=== PATIENT | female | born 1970 | race Hispanic/Latino ===

== ENCOUNTER → 2018-04-23 | Outpatient (CLI) | payer OTHER ==
--- NOTE | 2018-05-01 08:25 | Diagnostic Imaging Report ---
#[id number] - MGSCRBIL #BILATERAL DIGITAL SCREENING MAMMOGRAM WITH CAD: 04/23/2018 CLINICAL: Routine screening. Comparison is made to exams dated: 03/25/2017 mammogram and 02/07/2015 mammogram - [facility]. Current study contains 4 films. The tissue of both breasts is heterogeneously dense. This may lower the sensitivity of mammography. Current study was also evaluated with a Computer Aided Detection (CAD) system. There is an irregular density in the right breast middle depth superior region seen on the mediolateral oblique view only. This is highlighted with CAD analysis and appears different from the previous study. There is scattered calcification in the right breast. No other significant masses, calcifications, or other findings are seen in either breast. IMPRESSION: INCOMPLETE: NEEDS ADDITIONAL IMAGING EVALUATION The irregular density in the right breast is indeterminate. Additional views with possible ultrasound are recommended. The patient will be contacted by the Mammography Department to schedule this appointment. Peterson Nichols Jr., D.O. cw/:04/30/2018 14:07:15 Business Strategy Manager: Bekah OLMEDO(R)(M), [facility] letter sent: Additional Imaging Needed Mammogram BI-RADS: 0 Indeterminate
== END ==
LOC: MAMMO 08:39
PROVIDERS: ATTEND Internal Medicine
DX: Z12.31 Encounter for screening mammogram for malignant neoplasm of breast (principal)
CPT/HCPCS: 77067

== ENCOUNTER → 2018-05-21 | Outpatient (CLI) | payer OTHER ==
--- NOTE | 2018-05-22 09:11 | Diagnostic Imaging Report ---
#[id number] - USBRELIMRT ULTRASOUND OF THE RIGHT BREAST : 05/21/2018 CLINICAL: Routine screening. Comparison is made to exams dated: 04/23/2018 mammogram and 05/21/2018 mammogram - [facility]. Color flow and real-time ultrasound were performed on the upper right breast in the area of interest with scanning from 9 to 3 o'clock. -At 1 o'clock 1 cm from the nipple there is a cyst measuring 4 x 3 x 4 mm -At 1 o'clock 4 cm from the nipple there is a cyst measuring 3 x 3 x 3 mm IMPRESSION: BENIGN There is no sonographic evidence of malignancy. A 1 year screening mammogram is recommended. Peterson Nichols Jr., D.O. cw/:05/21/2018 15:28:47 Professor Of Criminal Justice: Donna Martin RDNV, [facility] letter sent: Normal Exam Ultrasound BI-RADS: 2 Benign
--- NOTE | 2018-05-22 09:11 | Diagnostic Imaging Report ---
#[id number] - MGDXRT #UNILATERAL RIGHT DIGITAL DIAGNOSTIC MAMMOGRAM WITH SPOT COMPRESSION: 05/21/2018 Comparison is made to exams dated: 04/23/2018 mammogram and 03/25/2017 mammogram - [facility]. Current study contains 3 films. The tissue of the right breast is heterogeneously dense. This may lower the sensitivity of mammography. No definite mass is seen in the area of question-ultrasound of the upper aspect of the right breast is recommended and will be performed today. No significant masses, calcifications, or other findings are seen in the breast. IMPRESSION: INCOMPLETE: NEEDS ADDITIONAL IMAGING EVALUATION Ultrasound of the upper aspect of the right breast is recommended and will be performed today. Peterson Nichols Jr., D.O. cw/:05/21/2018 15:15:29 Lock Tender: Bekah OLMEDO(Benedict)(M), [facility] letter sent: Additional Imaging Needed Mammogram BI-RADS: 0 Indeterminate
== END ==
LOC: MAMMO 09:32
PROVIDERS: ATTEND Internal Medicine
DX: R92.8 Other abnormal and inconclusive findings on diagnostic imaging of breast (principal)

== ENCOUNTER → 2019-04-22 | Outpatient (CLI) | payer OTHER | LOC: MAMMO 10:04 | PROVIDERS: ATTEND Internal Medicine | DX: Z12.31 Encounter for screening mammogram for malignant neoplasm of breast (principal) | CPT/HCPCS: 77067 ==